=== PATIENT | female | born 1990 | race Caucasian/White ===

== ENCOUNTER 2016-09-26 18:16 | Inpatient (IN) | payer BC, MEDICAID ==
[~2016-09-26] VITALS: Ht 165.1 cm; Wt 117.5 kg
[~2016-09-26 18:16] MED LIST: FERR27TA; PRENATAL VITAMINS
[2016-09-26] MEDS ORDERED: morphine 4 MG/ML VIAL IV STA (20:58)
[2016-09-26] MEDS ORDERED: PIPER-TAZO 3.375 GM IV (PMX) 100 ML IVPB STA (20:58)
[2016-09-26] MEDS ORDERED: ONDANSETRON 4 MG INJ IV STA (20:58)
[2016-09-26] MEDS ORDERED: IBUPROFEN 800 MG TAB PO ONE (21:00)
[2016-09-26 21:20] LABS: ADD SCAN DIFF NO
[2016-09-26 21:39] LABS: ALBUMIN 4.5 g/dl (3.3-4.9); POTASSIUM 4.2 mmol/L (3.5-5.1)
--- NOTE | 2016-09-26 21:40 | RADRPT ---
PROCEDURE: US DVT. CLINICAL INDICATION: Right lower extremity pain and swelling. TECHNIQUE: Multiple longitudinal and transverse images of the right lower extremity veins were obt ained with bloom scale and color Doppler imaging. 2D grayscale measurements with compression, color Doppler flow, and augmentation was performed. The calf veins were interrogated as well. COMPARISON: No prior studies are available for comparison. FINDINGS: The right common femoral, superficial femoral and popliteal veins are normally compressible througho ut. Color flow demonstrates normal filling of the vessel. Normal waveforms are visualized and ther e is normal response to augmentation. The calf veins are visualized and are equally unremarkable. IMPRESSION: 1. No evidence of a deep vein thrombosis involving the right lower extremity. RPTAT: HFN .Gianfranco Cui MD, Date Time Electronically viewed and signed by .Gianfranco Cui MD, MD on 09/26/2016 21:39 .N/
[2016-09-26 21:41] LABS: ALBUMIN/GLOBULIN RATIO 0.91; BILIRUBIN,INDIRECT 1.4 mg/dl (0-1.1); BILIRUBIN,TOTAL 1.4 mg/dl (0.2-1.3); CREATININE 0.74 mg/dl (0.44-1.00); TOTAL PROTEIN 9.4 g/dl (6.1-8.1)
[2016-09-26 21:42] LABS: CALCIUM 9.6 mg/dl (8.4-10.2)
[2016-09-26 21:49] LABS: BASOPHILS % 0.2 % (0.0-2.0); HEMATOCRIT 40.3 % (37.0-47.0); HEMOGLOBIN 13.3 g/dl (12.0-16.0); LYMPHOCYTES # 1.3 10^3/ul (0.8-2.9); LYMPHOCYTES % 8.6 % (15.0-51.0); MEAN CORPUSCULAR HEMOGLOBIN 31.1 pg (29.0-33.0); MEAN CORPUSCULAR VOLUME 94.4 fl (82.0-101.0); MEAN PLATELET VOLUME 13.6 fl (7.4-10.4); MONOCYTES % 6.9 % (0.0-11.0); NEUTROPHIL # 12.6 10^3/ul (1.6-7.5); NEUTROPHILS % 83.7 % (39.0-77.0); PLATELET COUNT 174 10^3/UL (140-415); RED BLOOD COUNT 4.27 10^6/ul (4.20-5.40); RED CELL DISTRIBUTION WIDTH 13.2 % (11.5-14.5); WHITE BLOOD COUNT 15.1 10^3/ul (4.8-10.8)
--- NOTE | 2016-09-26 22:31 | ERA ---
ER Documentation Chief Complaint Date/Time DATE: 09/26/16 TIME: 22:29 Chief Complaint REFERRED BY PCP TO TREAT RLE CELLULITIS HPI This is a 26-year-old female sent by her primary care physician for right leg cellulitis and fever. Patient states she has been gradual erythema from the right top of foot spreading up the right leg since yesterday. She has a 103's fever today. Also has some swelling and pain is constant worse with walking. No shortness of breath no history of DVT no chest pain no dysuria no cough no headache. No pain in the joints ROS All systems reviewed and are negative except as per history of present illness. Medications Home Meds Discontinued Reported Medications Ferrous Sulfate (Iron) 1 Tab Tablet 05/29/10 [ Vitamins] No Conflict Check 02/16/10 Allergies Allergies: Coded Allergies: No Known Drug Allergy (Verified Allergy, Unknown, 09/26/16) PMhx/Soc History of Surgery: No Anesthesia Reaction: No Hx Neurological Disorder: No Hx Respiratory Disorders: No Hx Cardiac Disorders: No Hx Psychiatric Problems: No Hx Miscellaneous Medical Probl: No Hx Alcohol Use: No Hx Substance Use: No Hx Tobacco Use: No Smoking Status: Never smoker FmHx Family History: No coronary disease Physical Exam Vitals Vital Signs Date Time Temp Pulse Resp B/P Pulse Ox O2 Delivery O2 Flow Rate FiO2 09/26/16 22:03 101.9 111 17 139/87 100 Room Air 09/26/16 21:03 103.2 123 27 146/98 100 Room Air 09/26/16 18:22 102.5 128 20 146/91 100 Physical Exam Const: Well-developed, well-nourished Head: Atraumatic, normocephalic Eyes: Normal Conjunctiva, PERRLA, EOMI, normal sclera, no nystagmus ENT: Normal External Ears, Nose and Mouth, moist mucus membranes. Neck: Full range of motion. No meningismus, no lymphadenopathy. Resp: Clear to auscultation bilaterally, no wheezing, rhonchi, rales Cardio: Regular rate and rhythm, no murmurs, S1 S2 present Abd: Soft, non tender x 4, non distended. Normal bowel sounds, no guarding or rebound, no pulsitile abdominal masses or bruits Skin: No petechiae or rashes, no ecchymosis , no maculopapular rash Back: No midline or flank tenderness Ext: No cyanosis, or edema, FROM x 4, normal inspection, neurovascularly intact x 4, right lower extremity has erythema on top of the right foot and the right grady nearly circumferential with edema no Homans sign no calf pain no cords Neur: Awake and alert, STR 5/5 x 4, sensation intact x 4, no focal findings, cerebellum intact Psych: Normal Mood and Affect Result Diagram: 09/26/16210409/26/162104 Results 24 hrs Laboratory Tests Test 09/26/16 21:05 Alanine Aminotransferase (ALT/SGPT) 37IU/L Albumin 4.5g/dl Albumin/Globulin Ratio 0.91 Alkaline Phosphatase 74IU/L Anion Gap 22 Aspartate Amino Transf (AST/SGOT) 33IU/L Basophils # 0.010^3/ul Basophils % 0.2% Blood Urea Nitrogen 15mg/dl Calcium Level 9.6mg/dl Carbon Dioxide Level 22mmol/L Chloride Level 99mmol/L Creatinine 0.74mg/dl Direct Bilirubin 0.00mg/dl Eosinophils # 0.010^3/ul Eosinophils % 0.0% Globulin 4.90g/dl Glucose Level 107mg/dl Hematocrit 40.3% Hemoglobin 13.3g/dl Indirect Bilirubin 1.4mg/dl Lymphocytes # 1.310^3/ul Lymphocytes % 8.6% Mean Corpuscular Hemoglobin 31.1pg Mean Corpuscular Hemoglobin Concent 33.0g/dl Mean Corpuscular Volume 94.4fl Mean Platelet Volume 13.6fl Monocytes # 1.010^3/ul Monocytes % 6.9% Neutrophils # 12.610^3/ul Neutrophils % 83.7% Nucleated Red Blood Cells # 0.010^3/ul Nucleated Red Blood Cells % 0.0/100WBC Platelet Count 80421^3/UL Potassium Level 4.2mmol/L Red Blood Count 4.2710^6/ul Red Cell Distribution Width 13.2% Sodium Level 139mmol/L Total Bilirubin 1.4mg/dl Total Protein 9.4g/dl White Blood Count 15.110^3/ul Current Medications Medications (Trade) Dose Ordered Sig/Mali Route PRN Reason Start Time Stop Time Status Last Admin Dose Admin Morphine Sulfate (morphine) 4 mg ONCE STAT IV 09/26/16 20:58 09/26/16 21:01 DC 09/26/16 21:13 Ondansetron HCl 4 mg 4 mg ONCE STAT IV 09/26/16 20:58 09/26/16 21:01 DC 09/26/16 21:13 Piperacillin Sod/ Tazobactam Sod (Zosyn 3.375gm/ 100 ml (Pmx)) 100 ml @ 200 mls/hr ONCE STAT IVPB 09/26/16 20:58 09/26/16 21:27 DC 09/26/16 21:13 Ibuprofen (Motrin) 800 mg ONCE ONCE PO 09/26/16 21:00 09/26/16 21:02 DC 09/26/16 21:13 Procedures/MDM PROCEDURE: US DVT. CLINICAL INDICATION: Right lower extremity pain and swelling. TECHNIQUE: Multiple longitudinal and transverse images of the right lower extremity veins were obtained with bloom scale and color Doppler imaging. 2D grayscale measurements with compression, color Doppler flow, and augmentation was performed. The calf veins were interrogated as well. COMPARISON: No prior studies are available for comparison. FINDINGS: The right common femoral, superficial femoral and popliteal veins are normally compressible throughout. Color flow demonstrates normal filling of the vessel. Normal waveforms are visualized and there is normal response to augmentation. The calf veins are visualized and are equally unremarkable. IMPRESSION: 1. No evidence of a deep vein thrombosis involving the right lower extremity. RPTAT: HFN .Gianfranco Cui MD, MD Date Time Electronically viewed and signed by .Gianfranco Cui MD, MD on 09/26/2016 21: 39 .N/ CC: VIKTOR MORALES DO Patient received antibiotics will be admitted to the hospital for fever 103, right leg cellulitis and elevated white blood count. Departure Diagnosis: Primary Impression: Cellulitis of right leg Condition: Stable VIKTOR MORALES DO Sep 26, 2016 22:31
[2016-09-26 22:45] VITALS: TEMP 100
[2016-09-26] MEDS ORDERED: ACETAMINOPHEN 325 MG TAB PO PRN (23:00)
[2016-09-26] MEDS ORDERED: ONDANSETRON 4 MG INJ IV PRN (23:00)
[2016-09-27] MEDS: SOD CHLORIDE 0.9% 1,000 ML IV SCH ×2 (01:34→11:01)
[2016-09-27 02:28] VITALS: Ht 165.1 cm; Wt 117.5 kg
[2016-09-27] MEDS ORDERED: ONDANSETRON 4 MG INJ IV PRN (02:30)
[2016-09-27 02:33] VITALS: BP 137/80; PULSE 101; RESP 20
[2016-09-27] MEDS: PANTOPRAZOLE 40 MG INJ IV SCH (05:40)
--- NOTE | 2016-09-27 07:10 | HP ---
Date/Time of Note Date/Time of Note DATE: 09/27/16 TIME: 07:05 Assessment/Plan VTE Prophylaxis VTE Prophylaxis Intervention: heparin Lines/Catheters IV Catheter Type (from Nrsg): Peripheral IV Assessment/Plan Assessment/Plan IMPRESSION 1. Sepsis 2/2 Right leg Cellulitis 2. Right Leg Cellulitis 3. Obesity with BMI of 43 PLAN Abx pain mgmt f/u culture results Doppler u/s with no DVT wt loss advised. HPI/ROS Admit Date/Time Admit Date/Time Sep 26, 2016 at 22:32 Hx of Present Illness This is a 26-year-old obese female with no significant medical hx sent by her primary care physician for right leg cellulitis and fever. Patient states she has been gradual erythema from the right top of foot spreading up the right leg since yesterday. Denied any trauma. In ER, she was febrile with a temp as high as 103 and tachy, HR 123. WBC is 15K. Dopper u/s with no DVT. . PMH/Family/Social Past Medical History Medical History: no pertinent history Social History Alcohol Use: occasionally Smoking Status: Never smoker Drug Use: none Exam/Review of Systems Vital Signs Vitals Vital Signs Date Time Temp Pulse Resp B/P Pulse Ox O2 Delivery O2 Flow Rate FiO2 09/27/16 02:33 97.9 101 20 137/80 98 Room Air Intake and Output 09/26/16 09/26/16 09/27/16 15:00 23:00 07:00 Intake Total 600 ml Balance 600 ml Exam Constitutional: alert, oriented, well developed Head: atraumatic, normocephalic Eyes: EOMI, PERRL Neck: non-tender, supple Respiratory: clear to auscultation, normal air movement Cardiovascular: nl pulses, other (tachycardic with regular rhythm) Gastrointestinal: non-tender, soft Extremities: other (right lower ext erythema and swelling) Labs Result Diagram: 09/26/16210409/26/162104 Medications Medications Current Medications Sodium Chloride (NS) 1,000 ml @ 80 mls/hr [id number] IV Last administered on 01:34; Admin Dose 80 MLS/HR; Start 09/26/16 at 22:31 Pantoprazole (Protonix Iv) 20 mg DAILY@06 IV Last administered on 09/27/16 05: 40; Admin Dose 20 MG; Start 09/27/16 at 06:00 Acetaminophen (Tylenol Tab) 650 mg Q6H PRN PO PAIN AND OR ELEVATED TEMP; Start 09/27/16 at 02:30 Ondansetron HCl (Zofran Inj) 4 mg Q6H PRN IV NAUSEA AND/OR VOMITING; Start 09/27 at 02:30 DORITA HODGE MD Sep 27, 2016 07:10
[2016-09-27] MEDS ORDERED: VANCOMYCIN IV PER PHARMACY XX SCH (07:30)
[2016-09-27] MEDS: ACETAMINOPHEN 325 MG TAB PO PRN ×2 (07:59→19:02)
[2016-09-27] MEDS ORDERED: VANCOMYCIN 2 GM in SOD CHLORIDE 0.9% 500 ML IVPB ONE (08:00)
[2016-09-27] MEDS ORDERED: morphine 4 MG/ML VIAL IV PRN (08:30)
[2016-09-27] MEDS: CEFEPIME 1GM/50 ML (PMX) 50 ML IVPB SCH ×2 (09:42→20:55)
[2016-09-27 10:38] LABS: ADD SCAN DIFF NO
[2016-09-27 10:44] LABS: BASOPHILS % 0.2 % (0.0-2.0); HEMATOCRIT 34.6 % (37.0-47.0); HEMOGLOBIN 11.3 g/dl (12.0-16.0); LYMPHOCYTES # 0.9 10^3/ul (0.8-2.9); LYMPHOCYTES % 8.2 % (15.0-51.0); MEAN CORPUSCULAR HGB CONC 32.7 g/dl (32.0-37.0); MEAN CORPUSCULAR VOLUME 95.1 fl (82.0-101.0); MEAN PLATELET VOLUME 12.9 fl (7.4-10.4); MONOCYTES % 8.6 % (0.0-11.0); NEUTROPHIL # 9.5 10^3/ul (1.6-7.5); NEUTROPHILS % 82.4 % (39.0-77.0); PLATELET COUNT 136 10^3/UL (140-415); RED BLOOD COUNT 3.64 10^6/ul (4.20-5.40); RED CELL DISTRIBUTION WIDTH 13.2 % (11.5-14.5); WHITE BLOOD COUNT 11.5 10^3/ul (4.8-10.8)
[2016-09-27 10:52] LABS: ALBUMIN 3.7 g/dl (3.3-4.9); POTASSIUM 3.4 mmol/L (3.5-5.1)
[2016-09-27 10:54] LABS: CREATININE 0.7 mg/dl (0.44-1.00)
[2016-09-27 10:55] LABS: ALBUMIN/GLOBULIN RATIO 0.97; CALCIUM 8.9 mg/dl (8.4-10.2); TOTAL PROTEIN 7.5 g/dl (6.1-8.1)
--- NOTE | 2016-09-27 12:20 | PN ---
Date/Time of Note Date/Time of Note DATE: 09/27/16 TIME: 12:17 Assessment/Plan VTE Prophylaxis VTE Prophylaxis Intervention: LMWH Lines/Catheters IV Catheter Type (from Nrsg): Peripheral IV Assessment/Plan Assessment/Plan 1. Sepsis 2/2 Right leg Cellulitis 2. Right Leg Cellulitis 3. Obesity with BMI of 43 PLAN IV abx zosyn and vancomycin f/u culture results Doppler u/s negative for DVT wt loss advised. Lovenox for DVT prophylaxis Subjective 24 Hr Interval Summary Free Text/Dictation afebrile, on IV abx, wound cx pending Exam/Review of Systems Vital Signs Vitals Vital Signs Date Time Temp Pulse Resp B/P Pulse Ox O2 Delivery O2 Flow Rate FiO2 09/27/16 02:33 97.9 101 20 137/80 98 Room Air Intake and Output 09/26/16 09/26/16 09/27/16 15:00 23:00 07:00 Intake Total 600 ml Balance 600 ml Exam Constitutional: alert, oriented, well developed Head: atraumatic, normocephalic Eyes: EOMI, PERRL Neck: non-tender, supple Respiratory: clear to auscultation, normal air movement Cardiovascular: nl pulses, other (tachycardic with regular rhythm) Gastrointestinal: non-tender, soft Extremities: other (right lower ext erythema and swelling) Results Result Diagram: 09/27/16 1023 09/27/16 1023 Results 24 hrs Laboratory Tests Test 09/26/16 21:05 09/27/16 10:23 Alanine Aminotransferase (ALT/SGPT) 37 38 Albumin 4.5 3.7 Albumin/Globulin Ratio 0.91 0.97 Alkaline Phosphatase 74 74 Anion Gap 22 H 16 Aspartate Amino Transf (AST/SGOT) 33 25 Basophils # 0.0 0.0 Basophils % 0.2 0.2 Blood Urea Nitrogen 15 12 Calcium Level 9.6 8.9 Carbon Dioxide Level 22 23 Chloride Level 99 102 Creatinine 0.74 0.70 Direct Bilirubin 0.00 0.00 Eosinophils # 0.0 0.0 Eosinophils % 0.0 0.0 Globulin 4.90 H 3.80 H Glucose Level 107 169 Hematocrit 40.3 34.6 L Hemoglobin 13.3 11.3 L Indirect Bilirubin 1.4 H 1.0 Lymphocytes # 1.3 0.9 Lymphocytes % 8.6 L 8.2 L Mean Corpuscular Hemoglobin 31.1 31.0 Mean Corpuscular Hemoglobin Concent 33.0 32.7 Mean Corpuscular Volume 94.4 95.1 Mean Platelet Volume 13.6 H 12.9 H Monocytes # 1.0 H 1.0 H Monocytes % 6.9 8.6 Neutrophils # 12.6 H 9.5 H Neutrophils % 83.7 H 82.4 H Nucleated Red Blood Cells # 0.0 0.0 Nucleated Red Blood Cells % 0.0 0.0 Platelet Count 174 136 #L Potassium Level 4.2 3.4 L Red Blood Count 4.27 3.64 L Red Cell Distribution Width 13.2 13.2 Sodium Level 139 138 Total Bilirubin 1.4 H 1.0 Total Protein 9.4 H 7.5 # White Blood Count 15.1 H 11.5 #H Medications Medications Current Medications Sodium Chloride (NS) 1,000 ml @ 80 mls/hr [id number] IV Last administered on 01:34; Admin Dose 80 MLS/HR; Start 09/26/16 at 22:31 Pantoprazole (Protonix Iv) 20 mg DAILY@06 IV Last administered on 09/27/16 05: 40; Admin Dose 20 MG; Start 09/27/16 at 06:00 Acetaminophen (Tylenol Tab) 650 mg Q6H PRN PO PAIN AND OR ELEVATED TEMP Last administered on 09/27/16 07:59; Admin Dose 650 MG; Start 09/27/16 at 02:30 Ondansetron HCl 4 mg 4 mg Q6H PRN IV NAUSEA AND/OR VOMITING; Start 09/27/16 at 02:30 Cefepime HCl 50 ml @ 100 mls/hr Q12 IVPB Last administered on 09/27/16 09:42; Admin Dose 100 MLS/HR; Start 09/27/16 at 09:00 Vancomycin HCl/ Sodium Chloride (Vancocin/NS) 250 ml @ 83.333 mls/ hr Q12H IVPB ; Start 09/27/16 at 20:00 Morphine Sulfate (morphine) 4 mg Q4H PRN IV PAIN LEVEL 7-10; Start 09/27/16 at 08:30 EDOUARD HORN MD Sep 27, 2016 12:20
[2016-09-27 20:00] VITALS: BP 130/65; RESP 19
[2016-09-27] MEDS: VANCOMYCIN 1.5 GM in SOD CHLORIDE 0.9% 250 ML IVPB SCH (20:55)
[2016-09-28] MEDS: PANTOPRAZOLE 40 MG INJ IV SCH (05:15)
[2016-09-28 06:05] LABS: ADD SCAN DIFF NO
[2016-09-28 06:26] LABS: INR 1.08; PT RATIO 1.1
[2016-09-28 06:27] LABS: PARTIAL THROMBOPLASTIN TIME 41.2 Sec (25.0-35.0)
[2016-09-28 06:33] LABS: BASOPHILS % 0.4 % (0.0-2.0); EOSINOPHILS % 0.3 % (0.0-7.0); HEMATOCRIT 34.2 % (37.0-47.0); LYMPHOCYTES # 1.4 10^3/ul (0.8-2.9); LYMPHOCYTES % 15.9 % (15.0-51.0); MEAN CORPUSCULAR HEMOGLOBIN 30.8 pg (29.0-33.0); MEAN CORPUSCULAR HGB CONC 32.2 g/dl (32.0-37.0); MEAN CORPUSCULAR VOLUME 95.8 fl (82.0-101.0); MEAN PLATELET VOLUME 13.3 fl (7.4-10.4); MONOCYTES % 11.5 % (0.0-11.0); NEUTROPHIL # 6.4 10^3/ul (1.6-7.5); NEUTROPHILS % 71.1 % (39.0-77.0); PLATELET COUNT 135 10^3/UL (140-415); RED BLOOD COUNT 3.57 10^6/ul (4.20-5.40); RED CELL DISTRIBUTION WIDTH 13.2 % (11.5-14.5)
[2016-09-28 06:43] LABS: POTASSIUM 3.5 mmol/L (3.5-5.1)
[2016-09-28 06:45] LABS: CREATININE 0.63 mg/dl (0.44-1.00)
[2016-09-28 06:46] LABS: CALCIUM 8.6 mg/dl (8.4-10.2)
[2016-09-28 07:54] VITALS: BP 128/81; RESP 19
[2016-09-28] MEDS: VANCOMYCIN 1.5 GM in SOD CHLORIDE 0.9% 250 ML IVPB SCH ×2 (07:56→19:50)
[2016-09-28] MEDS: ACETAMINOPHEN 325 MG TAB PO PRN ×3 (07:56→22:28)
--- NOTE | 2016-09-28 08:24 | PN ---
Date/Time of Note Date/Time of Note DATE: 09/28/16 TIME: 08:23 Assessment/Plan VTE Prophylaxis VTE Prophylaxis Intervention: LMWH Lines/Catheters IV [facility] Saline Lock Assessment/Plan Problems: (1) Cellulitis of right leg Status: Acute Comment: She is improving nicely on the IV antibiotics. I am going to switch her over to the Bactrim in preparation for a late discharge today or more likely discharge tomorrow morning. She is doing well (2) Morbid obesity due to excess calories Status: Chronic Comment: Counseled carefully Subjective 24 Hr Interval Summary Free Text/Dictation Patient reports that she believes her leg has improved nicely. Constitutional: no complaints (Denies fevers chills or sweats) Respiratory: no complaints Cardiovascular: no complaints Gastrointestinal: no complaints Genitourinary: no complaints Exam/Review of Systems Vital Signs Vitals Vital Signs Date Time Temp Pulse Resp B/P Pulse Ox O2 Delivery O2 Flow Rate FiO2 09/28/16 07:54 99.4 92 19 128/81 96 09/27/16 02:33 Room Air Intake and Output 09/27/16 09/27/16 09/28/16 14:59 22:59 06:59 Intake Total 550 ml 1380 ml 970 ml Balance 550 ml 1380 ml 970 ml Exam Constitutional: alert, oriented Neck: non-tender, supple Respiratory: clear to auscultation, normal air movement Cardiovascular: nl pulses, regular rate and rhythm Extremities: normal pulses, other (Borders of ink outline cellulitis are shrinking in nicely. Please note she does have onychomycosis) Results Result Diagram: 09/28/16 0545 09/28/16 0545 Results 24 hrs Laboratory Tests Test 09/27/16 10:23 09/28/16 05:45 Alanine Aminotransferase (ALT/SGPT) 38 Albumin 3.7 Albumin/Globulin Ratio 0.97 Alkaline Phosphatase 74 Anion Gap 16 16 Aspartate Amino Transf (AST/SGOT) 25 Basophils # 0.0 0.0 Basophils % 0.2 0.4 Blood Urea Nitrogen 12 8 Calcium Level 8.9 8.6 Carbon Dioxide Level 23 26 Chloride Level 102 104 Creatinine 0.70 0.63 Direct Bilirubin 0.00 Eosinophils # 0.0 0.0 Eosinophils % 0.0 0.3 Globulin 3.80 H Glucose Level 169 108 # Hematocrit 34.6 L 34.2 L Hemoglobin 11.3 L 11.0 L Indirect Bilirubin 1.0 Lymphocytes # 0.9 1.4 Lymphocytes % 8.2 L 15.9 Mean Corpuscular Hemoglobin 31.0 30.8 Mean Corpuscular Hemoglobin Concent 32.7 32.2 Mean Corpuscular Volume 95.1 95.8 Mean Platelet Volume 12.9 H 13.3 H Monocytes # 1.0 H 1.0 H Monocytes % 8.6 11.5 H Neutrophils # 9.5 H 6.4 Neutrophils % 82.4 H 71.1 Nucleated Red Blood Cells # 0.0 0.0 Nucleated Red Blood Cells % 0.0 0.0 Platelet Count 136 #L 135 L Potassium Level 3.4 L 3.5 Red Blood Count 3.64 L 3.57 L Red Cell Distribution Width 13.2 13.2 Sodium Level 138 142 Total Bilirubin 1.0 Total Protein 7.5 # White Blood Count 11.5 #H 9.0 # Activated Partial Thromboplast Time 41.2 H INR International Normalized Ratio 1.08 Prothrombin Time 14.0 Prothrombin Time Ratio 1.1 Medications Medications Current Medications Pantoprazole (Protonix Iv) 20 mg DAILY@06 IV Last administered on 09/28/16 05: 15; Admin Dose 20 MG; Start 09/27/16 at 06:00 Acetaminophen (Tylenol Tab) 650 mg Q6H PRN PO PAIN AND OR ELEVATED TEMP Last administered on 09/28/16 07:56; Admin Dose 650 MG; Start 09/27/16 at 02:30 Ondansetron HCl 4 mg 4 mg Q6H PRN IV NAUSEA AND/OR VOMITING; Start 09/27/16 at 02:30 Cefepime HCl 50 ml @ 100 mls/hr Q12 IVPB Last administered on 09/27/16 20:55; Admin Dose 100 MLS/HR; Start 09/27/16 at 09:00 Vancomycin HCl/ Sodium Chloride (Vancocin/NS) 250 ml @ 83.333 mls/ hr Q12H IVPB Last administered on 09/28/16 07:56; Admin Dose 83.333 MLS/HR; Start at 20:00 Morphine Sulfate (morphine) 4 mg Q4H PRN IV PAIN LEVEL 7-10; Start 09/27/16 at 08:30 Enoxaparin Sodium (Lovenox) 40 mg DAILY SC ; Start 09/28/16 at 09:00 STACY DEAN MD Sep 28, 2016 08:24
[2016-09-28] MEDS: ENOXAPARIN 40 MG/0.4 ML SYG SC SCH (09:25)
[2016-09-28] MEDS: CEFEPIME 1GM/50 ML (PMX) 50 ML IVPB SCH ×2 (12:38→22:29)
[2016-09-28] MEDS: TRIMETHOPRIM/SULFAMETHOX (DS) TAB PO SCH ×2 (12:38→20:36)
[2016-09-28 19:55] VITALS: BP 131/81; RESP 18
--- NOTE | 2016-09-29 06:53 | PDOCDIS ---
Discharge Instructions DIAGNOSIS Discharge Diagnosis: Right leg cellulitis; obesity CONDITION Patient Condition: Good HOME CARE INSTRUCTIONS: Diet Instructions: Reduced CalorieSpecial Diet: Regular ACTIVITY: Activity Restrictions: No Restrictions FOLLOW UP/APPOINTMENTS Appointments Primary care physician in 1 week STACY DEAN MD Sep 29, 2016 06:53
[2016-09-29] MEDS ORDERED: BACTDS PO (06:54)
[2016-09-29] MEDS ORDERED: BACITUD TOP (06:54)
--- NOTE | 2016-09-29 06:58 | DS ---
Date/Time of Note Date/Time of Note DATE: 09/29/16 TIME: 06:55 Discharge Summary Admission/Discharge Info Admit Date/Time Sep 26, 2016 at 22:32 Discharge Date/Time 09/29/2016 Final Diagnosis Right lower extremity cellulitis; morbid obesity Patient Condition: Good Procedures Lower extremity venous Doppler study which was negative Hx of Present Illness This is a 26-year-old obese female with no significant medical hx sent by her primary care physician for right leg cellulitis and fever. Patient states she has been gradual erythema from the right top of foot spreading up the right leg since yesterday. Denied any trauma. In ER, she was febrile with a temp as high as 103 and tachy, HR 123. WBC is 15K. Dopper u/s with no DVT. . Hospital Course Charming 26-year-old female admitted with right lower extremity cellulitis. Blood cultures were negative. The patient was placed on IV antibiotics using cefepime and vancomycin and demonstrated rapid and vigorous positive response. No additional abnormalities came up during the course of her hospitalization she did have negative screening hepatitis serologies. She is improved nicely and is now able to be discharged on oral medications. Please note that there is a blister on the posterior aspect of the right leg. She will apply Bactroban ointment to that if and when it opens. In the meantime it is still closed and we did not open that. For now she is improved and will be discharged on oral Bactrim to treat this. Home Meds Active Scripts Sulfamethoxazole-Trimethoprim* (Bactrim* DS) 800-160 Mg Tab, 1 TAB PO BID for 10 Days, TAB Prov:STACY DEAN MD 09/29/16 Bacitracin* (Bacitracin Oint (UD)*) 1 Applic Oint, 1 APPLIC TOP ONCE for 10 Days Apply to ruptured blister daily and dress with a breathable bandage Prov:STACY DEAN MD 09/29/16 Discontinued Reported Medications Ferrous Sulfate (Iron) 1 Tab Tablet 05/29/10 [ Vitamins] No Conflict Check 02/16/10 STACY DEAN MD Sep 29, 2016 06:58
[2016-09-29] MEDS ORDERED: BACITRACIN 0.9 GM OINT TOP ONE (07:00)
[2016-09-29 08:15] VITALS: BP 134/83; RESP 17
[2016-09-29] MEDS: ENOXAPARIN 40 MG/0.4 ML SYG SC SCH (09:00)
[2016-09-29] MEDS: VANCOMYCIN 1.5 GM in SOD CHLORIDE 0.9% 250 ML IVPB SCH (09:03)
[2016-09-29] MEDS: TRIMETHOPRIM/SULFAMETHOX (DS) TAB PO SCH (09:04)
[2016-09-29] MEDS: CEFEPIME 1GM/50 ML (PMX) 50 ML IVPB SCH (09:10)
[2016-09-29] MEDS: ACETAMINOPHEN 325 MG TAB PO PRN (09:11)
[2016-09-29] MEDS ORDERED: VANCOMYCIN 1.5 GM in SOD CHLORIDE 0.9% 250 ML IVPB SCH (17:00)
== END 2016-09-29 13:55 | disposition home or self-care (01) | DRG 603 ==
LOC: E/R 18:16 → PP2 22:32
PROVIDERS: ADMIT Internal Medicine; ATTEND Internal Medicine
DX: L03.115 Cellulitis of right lower limb (principal); Z68.41 Body mass index [BMI] 40.0-44.9, adult; E66.01 Morbid (severe) obesity due to excess calories; B35.1 Tinea unguium
CPT/HCPCS: 36415; 80048; 80053; 80202; 85025; 85610; 85730; 86803; 87040; 87340; 93971; 96374; 96375; C9113; J0692; J1650; J2270; J2405; J2543; J3370; J7030; J7040; J7050